=== PATIENT | female | born 2000 | race Caucasian/White ===

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

== ENCOUNTER 2022-02-18 08:05 | Outpatient (CLI) | payer BC, SELFPAY ==
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
--- NOTE | 2022-02-18 08:15 | CRLHL7_ITS ---
For Patients: As a result of the Century Cures Act, medical imaging exams and procedure reports are released immediately into your electronic medical record. You may view this report before your referring provider. If you have questions, please contact your health care provider. INDICATION: Evaluate anatomy. COMPARISON: none TECHNIQUE: Real time sosa scale imaging of the fetus was performed as well as color Doppler analysis of the umbilical vessels. FINDINGS: Sonographic imaging demonstrates a single living intrauterine gestation. Fetus demonstrates a regular cardiac rate of 141 beats per minute. Fetus has a cephalic position. The placenta lies left posterior without evidence of placenta previa. Edge of the placenta is located 7.1 cm from the internal cervical os. Velamentous cord insertion is present. Three-vessel cord noted. Amniotic fluid volume appears normal. Single deepest vertical pocket: 4.2 cm. The cervix is closed and measures 3.7 cm in length. The composite ultrasound gestational age is calculated at 20 weeks 0 days with an estimated sonographic due date of 07/08/2022. The estimated weight is 323 grams which lies at the 51st %. The following biometric measurements were obtained: Biparietal diameter: 4.5 cm/19 weeks 5 day 42nd% Head circumference: 17.0 cm/19 weeks 5 days 32nd% Abdominal circumference: 15.2 cm/20 weeks 3 days 63rd% Femur length: 3.1 cm/19 weeks 4 days 31st% The HC/AC ratio measures: 1.12 range (1.08-1.25) On anatomic survey, there is a normal appearance of the cerebral ventricles, cavum septi pellucidi, cisterna magna and cerebellum. The nose, lips, and facial profile appear normal. The cervical, thoracic and lumbar spine are well visualized and appear normal. There is a normal four-chamber heart view and the left and right ventricular outflow tracts appear normal. The diaphragm and stomach appear normal. The kidneys and bladder also appear normal. The four extremities appear normal. IMPRESSION: Concordance of clinical and sonographic dating. No intrinsic abnormalities noted on anatomic survey. Velamentous three-vessel cord insertion. No placenta previa. Dictated by Jack Blake MD @ 02/18/2022 10:08:41 AM (Electronically Signed)
== END 2022-02-18 08:06 | disposition home or self-care (01) ==
LOC: US 08:05
PROVIDERS: Visit Provider Advanced Practice Midwife
DX: Z34.92 Encounter for supervision of normal pregnancy, unspecified, second trimester (principal); Z3A.19 19 weeks gestation of pregnancy
CPT/HCPCS: 76805

== ENCOUNTER 2022-04-15 09:37 | Outpatient (CLI) | payer BC, SELFPAY ==
--- NOTE | 2022-04-15 09:45 | CRLHL7_ITS ---
For Patients: As a result of the Century Cures Act, medical imaging exams and procedure reports are released immediately into your electronic medical record. You may view this report before your referring provider. If you have questions, please contact your health care provider. INDICATION: Third trimester scan, evaluate growth. COMPARISON: 02/18/2022 TECHNIQUE: Real time sosa scale imaging of the fetus was performed. FINDINGS: Sonographic imaging demonstrates a single living intrauterine gestation. Fetus demonstrates a regular cardiac rate of 159 beats per minute. Fetus has a vertex position. The placenta lies posteriorly. Amniotic fluid volume appears normal and there is a single deepest vertical pocket: 4.8 cm. The estimated weight is 1225gm which lies at the 60th %. On the prior OB ultrasound exam dated 02/18/2022 the estimated weight was at the 51st%. BPD greater than 97th percentile. HC 89th percentile. AC 77th percentile. FL 7th percentile. The HC/AC ratio measures 1.12 range (0.99-1.20). IMPRESSION: Sonographic gestational age 29 weeks 2 days and sonographic due date 06/29/2022. Sonographic age is 10 days ahead of the clinical age. Estimated weight 60th percentile. Abdominal circumference 77th percentile. Dictated by Jack Blake MD @ 04/16/2022 12:07:59 PM (Electronically Signed)
== END 2022-04-15 09:38 | disposition home or self-care (01) ==
LOC: US 09:38
PROVIDERS: Visit Provider Advanced Practice Midwife
DX: O43.123 Velamentous insertion of umbilical cord, third trimester (principal); Z3A.29 29 weeks gestation of pregnancy
CPT/HCPCS: 76816; 86592

== ENCOUNTER 2022-05-13 09:44 | Outpatient (CLI) | payer BC, SELFPAY ==
--- NOTE | 2022-05-13 09:45 | CRLHL7_ITS ---
For Patients: As a result of the Century Cures Act, medical imaging exams and procedure reports are released immediately into your electronic medical record. You may view this report before your referring provider. If you have questions, please contact your health care provider. INDICATION: GROWTH, VELAMENTOUS CORD INSERTION COMPARISON: 02/18/2022 TECHNIQUE: Real time sosa scale imaging of the fetus was performed. FINDINGS: Sonographic imaging demonstrates a single living intrauterine gestation. Fetus demonstrates a regular cardiac rate of 150 beats per minute. Fetus has a cephalic position. The placenta lies posteriorly. Amniotic fluid volume appears normal and there is a single deepest vertical pocket: 4.8 cm. The estimated weight is 1902gm which lies at the 47th %. On the prior OB ultrasound exam dated 02/18/2022 the estimated weight was at the 51st%. BPD 89th percentile. HC 53rd percentile. AC 64th percentile. FL 13th percentile. The HC/AC ratio measures 1.06 range (0.96-1.12). The cord insertion is not well evaluated on this exam. IMPRESSION: Sonographic gestational age 32 weeks 4 days and sonographic due date 07/04/2022. Sonographic age is 5 days ahead of the clinical age. Estimated weight 47th percentile. Abdominal circumference 64th percentile. Dictated by Jack Blake MD @ 05/13/2022 1:32:58 PM (Electronically Signed)
== END 2022-05-13 09:45 | disposition home or self-care (01) ==
LOC: US 09:45
PROVIDERS: Visit Provider Physician Assistant
DX: O43.123 Velamentous insertion of umbilical cord, third trimester (principal); Z3A.32 32 weeks gestation of pregnancy
CPT/HCPCS: 76816

== ENCOUNTER 2022-05-19 12:29 | Outpatient (CLI) | payer BC, SELFPAY ==
[2022-05-19 12:41] VITALS: BP 97/64; PULSE 79; RESP 16; TEMP 37.4; O2SAT 97
--- NOTE | 2022-05-19 12:56 | ED_ITS ---
HPI - General Adult General Time Seen by Provider: 13:04 Date Seen: 05/19/22 Chief complaint: Fall/Minor Trauma Stated complaint: fell,lower back pain,stomach pain Time Seen by Provider: 05/19/22 12:35 Source: patient Mode of arrival: ambulatory Limitations: no limitations History of Present Illness HPI narrative: Patient is a 22-year-old white female who is 32 weeks estimated gestational age, slipped on ice today landed on her buttock on the stairs. She has some mild discomfort in her right leg but is able to move her leg fully able to walk without difficulty. She has no bruising or injury noted yet, she has had no trauma to her abdominal area no vaginal bleeding, no contractions. The patient was concerned about the and came to the ER for evaluation. She has had good movement, no vaginal bleeding, no abdominal pain. Related Data Home Medications Medication Instructions Recorded Confirmed prenat.vits,lee ann,[id number] 1 tab PO QDAY 11/30/21 05/19/22 Allergies Allergy/AdvReac Type Severity Reaction Status Date / Time No Known Allergies Allergy Unverified 05/13/22 10:25 Review of Systems Status of ROS: Reports: 6 or more systems reviewed and unremarkable except as noted in History and below [facility] Medical History Laceration of hand Normal spontaneous vaginal delivery hemorrhage Family History Maternal Grandmother Diabetes Social History Smoking Status: Never smoker How often do you have a drink containing alcohol: never How often do you have six or more drinks on one occasion: Never AUDIT-C Alcohol total score: 0 Non-prescribed substance use: denies use Little interest or pleasure in doing things: nearly every day Feeling down, depressed, or hopeless: more than half the days Exam Narrative: Exam Narrative: Objective: Jefferson is in no apparent distress, her vital signs unremarkable Abdomen is benign soft back exam unremarkable HEENT unremarkable no neck pain lower extremities showed no range of motion deficit no bruising ecchymoses, full range of motion hips bilaterally, her abdomen is soft as mention nontender g ravid. She does report good movement. She denies any vaginal bleeding or contractions Const: Vital Signs, click to edit/add: Vital Signs - 24 hr 05/19/22 12:41 05/19/22 13:31 05/19/22 13:45 Temperature 99.3 F 98.7 F Pulse Rate [Pulse Oximeter] 79 Respiratory Rate 16 Blood Pressure [Ri ght Upper Arm] 97/64 Pulse Oximetry 97 98 Course Vital Signs Vital signs: Initial Vital Signs Temperature 99.3 F 05/19/22 12:41 Temperature Source Temporal Artery Scan 05/19/22 12:41 Pulse Rate 79 05/19/22 12:41 Pulse Rhythm 05/19/22 12:41 Respiratory Rate 16 05/19/22 12:41 Blood Pressure 97/64 05/19/22 12:41 Blood Pressure Mean 75 05/19/22 12:41 Blood Pressure Position Sitting 05/19/22 12:41 Pulse Oximetry 97 05/19/22 12:41 Vital Signs Temperature 99.3 F 05/19/22 12:41 Pulse Rate 79 05/19/22 12:41 Respiratory Rate 16 05/19/22 12:41 Blood Pressure 97/64 05/19/22 12:41 Pulse Oximetry 97 05/19/22 12:41 Temperature 98.7 F 05/19/22 13:45 Pulse Rate 79 05/19/22 12:41 Respiratory Rate 16 05/19/22 12:41 Blood Pressure 97/64 05/19/22 12:41 Pulse Oximetry 98 05/19/22 13:31 Medical Decision Making MDM Narrative Medical decision making narrative: The patient fell on ice on her buttock area, with no significant sequelae over the and other than some slight bruising to the and discomfort to the right leg, do not think she needs imaging studies, I do think she did she would benefit from a OB assessment to make sure she has got a good heart tones and no other worrisome changes. We will call OB and make arrangements for evaluation by OB. They can discharge the patient as they feel fit. Addendum: Per obese request the patient will be transferred to OB. I think she is clear from an ER perspective. Will get monitoring down on the OB floor for heart tones etc.. Discharged per OB unit Discharge Plan Discharge Clinical Impression: , Fall Condition: Stable Additional Instructions: Instructions as per Ob, light activity, Tylenol as needed, gentle range of motion. Return as needed. Update regular doctor next couple of days. Close mo nitoring of movement and any vaginal changes such as bleeding. Prescriptions: No Action prenat.vits,lee ann,[id number] Tablet 1 tab PO QDAY Follow Up/Referrals: Provider,Not a Local [Primary Care Provider] - Stand Alone Forms: [facility] Info Instructions
[2022-05-19 13:31] VITALS: PULSE 85; O2SAT 98
[2022-05-19 13:45] VITALS: TEMP 37.1
--- NOTE | 2022-05-19 16:30 | CRLHL7_ITS ---
For Patients: As a result of the Cures Act, medical imaging exams and procedure reports are released immediately into your electronic medical record. You may view this report before your referring provider. If you have questions, please contact your health care provider. INDICATION: Fall, 32 weeks 5 days gestation TECHNIQUE: Limited grayscale transabdominal OB ultrasound. COMPARISON: May 13, 2022 FINDINGS: Sonographic imaging demonstrates a single living intrauterine gestation. Fetus demonstrates a regular cardiac rate of 159 beats per minute. Fetus has a vertex orientation. The placenta lies posterior without evidence of placenta abruption. Amniotic fluid volume appears normal. Single deepest vertical pocket: 3.7 cm. There is funneling and shortening of the cervix with contractions. With contractions the cervix measures 1.1 cm. Without contraction the cervix measures 1.7 cm. IMPRESSION.: Single viable intrauterine . No evidence for placental abruption. Funneling and shortening of the cervix with contractions. Dictated by Sunitha Lomax MD @ 05/19/2022 6:21:47 PM (Electronically Signed)
[2022-05-19 16:49] LABS: Basophils Absolute Auto 0.01 K/uL (0.00-0.30); Basophils Percent Auto 0.1 % (0.0-3.0); Eosinophils Absolute Auto 0.03 K/uL (0.00-0.50); Eosinophils Percent Auto 0.4 % (0.0-7.0); Hematocrit 32.9 % (33.0-51.0); Hemoglobin* 11.4 gm/dL (12.0-16.0); Immature Granulocytes Abs Auto 0.02 K/uL (0.00-0.30); Immature Granulocytes Pct Auto 0.2 %; Lymphocytes Percent Auto 21.3 % (20-44); Mean Corpuscular HGB Conc 35 gm/dL (32-36); Mean Corpuscular Hemoglobin 29 pg (26-34); Mean Corpuscular Volume 83 fL (80-100); Monocytes Percent Auto 5.5 % (0.0-11.0); Neutrophils Percent Auto 72.5 % (42.0-72.0); Platelet Count* 221 K/uL (140-440); RDW Coefficient of Variation % 12.1 % (11.5-15.5); Red Blood Count 3.95 m/uL (4.00-5.20); White Blood Count* 8.44 K/uL (4.50-11.00)
[2022-05-19 16:52] LABS: Slide Review Reflex No
[2022-05-19 17:07] LABS: INR 0.94 (0.91-1.10); Prothrombin Time 13.2 Seconds
[2022-05-19 17:08] LABS: Fibrinogen* 457 mg/dL (200-450); Partial Thromboplastin Time* 26 Seconds (23-33)
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
[2022-05-19] MEDS: BETAMETHASONE SOD PHOS/ACETATE 6 MG/ML ML 12 MG IM (18:27)
[2022-05-19] MEDS: AMPICILLIN 2 GM in 0.9 % SODIUM CHLORIDE Mini-bag 100 ML IVPB (18:33)
[2022-05-19] MEDS: NIFEdipine 10 MG CAPSULE 20 MG PO (18:36)
[2022-05-19 18:37] VITALS: BP 121/73; PULSE 81
[2022-05-19 19:04] VITALS: BP 116/65; PULSE 88
--- NOTE | 2022-05-19 19:26 | PC.OBNST ---
NST Note NST Note Start: 05/19/22 13:40 Freq: ONCE Status: Active Protocol: Document 05/19/22 19:24 SCIENTOLOGY (Rec: 05/19/22 19:26 SCIENTOLOGY [id number]) NST Note 2 Para (# of births) 1 EDC 07/09/22 Gestational Age In Weeks & Days 32 Weeks & 5 Days Patient Presented with Complaint(s) of Observation after an injury If Observation after an injury, describe Fall at 1230 today If Pain, describe location no pain Reactive Yes Appropriate for Gestational Age Yes TRINA Nick Date 05/19/22 Reactive Yes Appropriate for Gestational Age Yes TRINA Navarro Date 05/19/22 OB NST charge Yes Complete NST Note via Write Note Yes The provider's electronic signature indicates the NST is reactive/appropriate for gestational age. *Note to provider: If an addendum is required, open the patient's chart and click on the note under the Nurse/Allied Health tab.
== END 2022-05-19 19:08 | disposition other institution (70) ==
LOC: ED 13:08 → OB OUT 13:29 → ED 13:32 → OB OUT 13:33 → OB 13:33
PROVIDERS: Emergency Provider Family Medicine; Visit Provider Obstetrics & Gynecology
DX: O43.129 Velamentous insertion of umbilical cord, unspecified trimester (principal); O60.00 Preterm labor without delivery, unspecified trimester; W19.XXXA Unspecified fall, initial encounter; Z3A.32 32 weeks gestation of pregnancy
CPT/HCPCS: 36415; 59025; 76815; 76817; 85025; 85384; 85610; 85730; 99213; 99283; A9270; J0290; J0702

== ENCOUNTER 2022-05-19 19:03 | Outpatient (CLI) | payer BC, SELFPAY | END 2022-05-19 19:04 | disposition home or self-care (01) | LOC: AMB 05-20 09:41 | PROVIDERS: Visit Provider Emergency Medicine Emergency Medical Services | DX: O47.00 False labor before 37 completed weeks of gestation, unspecified trimester (principal) | CPT/HCPCS: A0425; A0428 ==

== ENCOUNTER 2022-06-11 08:10 | Outpatient (CLI) | payer BC, SELFPAY ==
--- NOTE | 2022-06-11 08:15 | CRLHL7_ITS ---
For Patients: As a result of the Century Cures Act, medical imaging exams and procedure reports are released immediately into your electronic medical record. You may view this report before your referring provider. If you have questions, please contact your health care provider. INDICATION: GROWTH, VELAMENTOUS CORD INSERTION COMPARISON: 05/13/2022, 05/19/2022 TECHNIQUE: Real time sosa scale imaging of the fetus was performed as well as color Doppler and spectral Doppler analysis of the umbilical artery. FINDINGS: Sonographic imaging demonstrates a single living intrauterine gestation. Fetus demonstrates a regular cardiac rate of 147 beats per minute. Fetus has a vertex position. The placenta lies posterior. Cord insertion is similar. Amniotic fluid volume appears normal and there is a single deepest vertical pocket: A 6.5 cm. The estimated weight is 2711gm which lies at the 39th %. On the prior OB ultrasound exam dated 05/13/2022 the estimated weight was at the 47th%. BPD 59th percentile. HC 29th percentile. AC 51st percentile. FL 17th percentile. The HC/AC ratio measures 1.01 range (0.93-1.09). IMPRESSION: Sonographic gestational age 35 weeks 5 days and sonographic due date of 07/11/2022. Good correlation with dates. Normal interval growth. Estimated weight 39th percentile. Abdominal circumference 51st percentile. Dictated by Jack Blake MD @ 06/12/2022 9:53:40 AM (Electronically Signed)
== END 2022-06-11 08:11 | disposition home or self-care (01) ==
LOC: US 08:10
PROVIDERS: Visit Provider Physician Assistant
DX: O43.123 Velamentous insertion of umbilical cord, third trimester (principal); Z3A.35 35 weeks gestation of pregnancy
CPT/HCPCS: 76816; 87081; 87653

== ENCOUNTER 2022-06-15 13:06 | Outpatient (CLI) | payer BC, SELFPAY ==
[2022-06-15 13:26] VITALS: BP 117/83; PULSE 76
[2022-06-15 13:27] VITALS: RESP 16; TEMP 36.8
--- NOTE | 2022-06-15 15:53 | PC.OBNST ---
NST Note NST Note Start: 06/15/22 13:09 Freq: ONCE Status: Active Protocol: Document 06/15/22 15:52 MARIALUISA (Rec: 06/15/22 15:53 MARIALUISA [id number]) NST Note 2 Para (# of births) 1 EDC 07/09/22 Gestational Age In Weeks & Days 36 Weeks & 4 Days Patient Presented with Complaint(s) of Other Other Complaints pt. sent over from the clinic due to being 6cm and having UC 's Reactive Yes Appropriate for Gestational Age Yes TRINA Dai RNC Date 06/15/22 Reactive Yes Appropriate for Gestational Age Yes TRINA Le RN Date 06/15/22 OB NST charge Yes Complete NST Note via Write Note Yes The provider's electronic signature indicates the NST is reactive/appropriate for gestational age. *Note to provider: If an addendum is required, open the patient's chart and click on the note under the Nurse/Allied Health tab.
== END 2022-06-15 15:38 | disposition home or self-care (01) ==
LOC: OB OUT 13:08 → OB 13:09
PROVIDERS: Visit Provider Obstetrics & Gynecology
DX: Z34.93 Encounter for supervision of normal pregnancy, unspecified, third trimester (principal); Z3A.36 36 weeks gestation of pregnancy
CPT/HCPCS: 59025; 99213

== ENCOUNTER 2022-06-18 13:02 | Outpatient (CLI) | payer BC, SELFPAY ==
[2022-06-18 13:22] VITALS: BP 122/61; PULSE 85
[2022-06-18 13:23] VITALS: PULSE 92; O2SAT 98
[2022-06-18 13:24] VITALS: RESP 16; TEMP 36.8
--- NOTE | 2022-06-18 14:03 | PC.OBNST ---
NST Note NST Note Start: 06/18/22 13:10 Freq: ONCE Status: Active Protocol: Document 06/18/22 13:38 SAMANTHA (Rec: 06/18/22 14:03 SAMANTHA [id number]) NST Note 2 Para (# of births) 1 EDC 07/09/22 Gestational Age In Weeks & Days 37 Weeks & 0 Days Patient Presented with Complaint(s) of Decreased movement Reactive Yes Appropriate for Gestational Age Yes RN Emily Priest, TRINAC Date 06/18/22 Reactive Yes Appropriate for Gestational Age Yes TRINA Hoskins, RN Date 06/18/22 OB NST charge Yes Complete NST Note via Write Note Yes The provider's electronic signature indicates the NST is reactive/appropriate for gestational age. *Note to provider: If an addendum is required, open the patient's chart and click on the note under the Nurse/Allied Health tab.
== END 2022-06-18 13:44 | disposition home or self-care (01) ==
LOC: OB OUT 13:03 → OB 13:03
PROVIDERS: Visit Provider Obstetrics & Gynecology
DX: O36.8130 Decreased fetal movements, third trimester, not applicable or unspecified (principal); Z3A.37 37 weeks gestation of pregnancy
CPT/HCPCS: 59025; 99213

== ENCOUNTER 2022-06-25 11:07 | Outpatient (CLI) | payer BC, SELFPAY ==
[2022-06-25 11:14] VITALS: BP 120/72; PULSE 80
[2022-06-25 11:15] VITALS: RESP 16; TEMP 36.5
== END 2022-06-25 13:00 | disposition home or self-care (01) ==
LOC: OB OUT 11:12 → OB 11:13
PROVIDERS: Visit Provider Obstetrics & Gynecology
DX: Z34.93 Encounter for supervision of normal pregnancy, unspecified, third trimester (principal); Z3A.38 38 weeks gestation of pregnancy
CPT/HCPCS: 59025; 99213

== ENCOUNTER 2022-06-25 15:57 | Inpatient (IN) | payer BC, SELFPAY ==
[2022-06-25] VITALS (16 sets, daily range): BP systolic 107–125; BP diastolic 65–84; PULSE 66–101; RESP 16; TEMP 36.3–37; O2SAT 94–100; BMI 25.9
--- NOTE | 2022-06-25 15:58 | W.PM.LDBA ---
Subjective History of Present Illness Narrative: Patient is being admitted to Labor and Delivery for labor. She is a 22 year old -0-0-1 woman at 38 weeks gestation. Specific Issues/Plans ? Partner: Jack ? 1.? Teen - offer [place] teen group, forensic social worker at next visit, recommended and offered 01/01-patient declined 2.? Hx of PP hemorrhage requiring transfusion (QBL 1479) -Consider TXA prior to delivery 2.? Depression & anxiety -worse now that family has moved back to [place] -Willing tor try medication, Lexapro ordered at [facility].? -01/01:? Reported she did not start the Lexapro.? She is feeling much better. -previous hx of suicide attempt in 6th grade, inpatient for 2 weeks after 3. Velamentous cord insertion. Growth U/S Q4 weeks starting at 28-32 weeks. 04/15/22:Estimated weight 60th percentile. Abdominal circumference 77th percentile. SDP 4.8 32 weeks: EFW 47%, BPD 89%, HC 53%, AC 64%, FL 13%, SDP 4.8 36 weeks:Vertex presentation, S DP:? 6.5 cm, posterior placenta, heart rate 147 beats per minute.? BPD: 59 percentile, HC 29 percentile, AC 51 percentile, F L 17 percentile.? EFW: 2711 g, 39% 4. Evaluated at L&D on 05/19/22 after a fall: - uterine contractions and cervix 2cm dilated- labor -Transferred to [facility], s/p course of betamethasone -Was left on Procardia q 6hrs, has been tolerating well-now discontinued COVID: FLU: 02/18/22 TDAP: 04/29/22 Her full history and physical was dictated by Dr. Koenig on 06/11/22. Please see this for details. OB - Problem Based A/P Additional Plan (1) : Status: Acute Plan: 22-year-old G2, P 1-0-0-1 woman at 38 weeks, 0 days gestation in active labor. Category 1 tracing GBS negative History of hemorrhage Plan Type and screen, CBC. Otherwise, expectant management. Anticipate spontaneous vaginal delivery. OB Exam Physical Exam Vital signs: Temp Pulse Resp BP Pulse Ox 98.4 F 76 16 115/68 100 06/25/22 15:41 06/25/22 15:41 06/25/22 15:41 06/25/22 15:41 06/25/22 15:41 General: Pacing, breathing through contractions Heart: Regular rate and rhythm, no murmur or gallop Lungs: Clear to auscultation bilaterally Abdomen: Soft, nontender, gravid Lower extremities: No edema or erythema Narrative: tracing: Baseline 135 / accels present / no decels /moderate variability
[2022-06-25 16:27] LABS: Basophils Absolute Auto 0.01 K/uL (0.00-0.30); Basophils Percent Auto 0.1 % (0.0-3.0); Eosinophils Absolute Auto 0.03 K/uL (0.00-0.50); Eosinophils Percent Auto 0.3 % (0.0-7.0); Hematocrit 35.1 % (33.0-51.0); Hemoglobin* 11.6 gm/dL (12.0-16.0); Immature Granulocytes Abs Auto 0.04 K/uL (0.00-0.30); Immature Granulocytes Pct Auto 0.4 %; Lymphocytes Absolute Auto 2.59 K/uL (0.90-2.90); Lymphocytes Percent Auto 25.8 % (20-44); Mean Corpuscular HGB Conc 33 gm/dL (32-36); Mean Corpuscular Hemoglobin 27 pg (26-34); Mean Corpuscular Volume 80 fL (80-100); Monocytes Percent Auto 6.7 % (0.0-11.0); Neutrophils Absolute Auto 6.71 K/uL (1.7-7.0); Neutrophils Percent Auto 66.7 % (42.0-72.0); Platelet Count* 219 K/uL (140-440); RDW Coefficient of Variation % 12.9 % (11.5-15.5); Red Blood Count 4.37 m/uL (4.00-5.20); White Blood Count* 10.05 K/uL (4.50-11.00)
[2022-06-25 17:01] LABS: SARS PCR* Negative SARS-CoV-2 (Negative)
[2022-06-25 17:21] LABS: Slide Review Reflex No
[2022-06-25] MEDS: TRANEXAMIC ACID 100 MG/ML INJ 1000 MG IV (18:08)
[2022-06-25] MEDS: OXYTOCIN 30 unit/500 ML in NS 30 UNIT/500 ML BAG 300 UNIT IVPB (18:08)
[2022-06-25] MEDS: LIDOCAINE 1 % PF 30 ML INJECTION (18:11)
[2022-06-25] MEDS: miSOPROStoL 800 MCG/4 TABLET PR (18:16)
--- NOTE | 2022-06-25 18:30 | PM.OBPRCVD ---
Procedure Delivery date: 06/25/22 Procedure Done: Global Procedure Details: The patient is a 22 year-old G 2 P 1-0-0-1 admitted on 06/25/2022 at 38 Weeks, 0 Days gestation for labor.? Cervical exam on admission was 7 cm/80 % effaced/-1 station with membranes intact in vertex presentation.? Contractions were regular.? heart rate demonstrated baseline 135 bpm with moderate variability, positive accelerations, no decelerations; a category 1 tracing.? ? Labor Analgesia:? None ? Pitocin:? No ? Labor onset:? 3:30 p.m. AROM occurred at 1800 with clear fluid. Just after this, fetus exhibited deceleration into the 80s, which subsequently recovered into the normal range prior to of baby. ? Complete:? 1804 ? Pushing:? 1804. ? At 1805 a viable male delivered in vertex OA presentation over intact perineum via spontaneous vaginal delivery after the patient pushed over the course of 1 contraction.? Infant was placed on maternal abdomen.? Cord was clamped and cut after a greater than 60 second delay.? Nose and mouth were bulb suctioned.? Infant weight pending.? 8 at 1 minute and 9 at 5 minutes.? Shoulder dystocia: No.? Nuchal cord: No. ? Placenta delivered spontaneously and complete at 1808 with a 3 vessel cord. ? Mother and infant were stable after delivery. ? Lacerations:? Right periurethral, repaired with 2 interrupted sutures of 3-0 chromic after infiltration with small amount of 1% lidocaine. ? Blood loss: 350 mL. Blood loss measurement type: QBL ? Sponge and needles counts are correct. Given her history of hemorrhage, she was given Pitocin and TXA after delivery of the infant. In addition, when bleeding increased during the repair of her laceration, she was treated with 800 mcg of rectal misoprostol.
[2022-06-26 00:27] VITALS: BP 121/54; PULSE 82; RESP 16; TEMP 36.4; O2SAT 99
[2022-06-26] MEDS: ACETAMINOPHEN 500 MG TABLET 1000 MG PO (04:15)
[2022-06-26 04:29] VITALS: BP 110/73; PULSE 76; RESP 16; TEMP 37; O2SAT 97
[2022-06-26 09:15] VITALS: BP 117/83; PULSE 75; RESP 16; TEMP 36.5
--- NOTE | 2022-06-26 09:36 | PM.OBDSVD1 ---
DS: Providers Provider Date Seen: 06/26/22 Date of admission: 06/25/22 15:57 Primary care physician: Not a Local Provider Admitting Clinician: Negar Bolivar MD Attending Physician on discharge: MD Gloria Date of Discharge: 06/26/22 DS: Diagnosis Discharge Diagnosis (1) Normal spontaneous vaginal delivery: Status: Acute Exam Narrative: Exam Narrative: VITAL SIGNS: As noted above. GENERAL APPEARANCE: Alert, cooperative female in no acute distress. MOOD & AFFECT: Normal. Abdomen: Soft, non-distended and nontender. Uterus well contracted and appropriately tender. : Normal lochia. EXTREMITIES: Nonedematous. Well perfused. Nontender. Const: Vital Signs, click to edit/add: Vital Signs - 24 hr 06/25/22 15:41 06/25/22 15:41 06/25/22 17:03 Temperature 98.4 F Pulse Rate 76 88 Pulse Rate [Pulse Oximeter] Respiratory Rate 16 Blood Pressure 115/68 125/65 Blood Pressure [Le ft Arm] Pulse Oximetry [facility] 06[facility] 17:03 06/25/22 17:51 06/25/22 17:51 Temperature 98.3 F 98.1 F Pulse Rate 70 Pulse Rate [Pulse Oximeter] Respiratory Rate 16 16 Blood Pressure 122/84 Blood Pressure [Le ft Arm] Pulse Oximetry [facility] 06/25/22 18:02 06/25/22 18:05 06/25/22 18:10 Temperature Pulse Rate 69 Pulse Rate [Pulse Oximeter] Respiratory Rate Blood Pressure 119/75 Blood Pressure [Le ft Arm] Pulse Oximetry 100 94 [facility] 06/25/22 18:22 06/25/22 18:25 06/25/22 18:40 Temperature Pulse Rate 66 67 75 Pulse Rate [Pulse Oximeter] Respiratory Rate Blood Pressure 120/76 117/76 119/78 Blood Pressure [Le ft Arm] Pulse Oximetry [facility] 06/25/22 18:55 06/25/22 19:10 06/25/22 19:25 Temperature Pulse Rate 81 67 66 Pulse Rate [Pulse Oximeter] Respiratory Rate Blood Pressure 107/70 116/74 119/78 Blood Pressure [Le ft Arm] Pulse Oximetry [facility] 06/25/22 19:41 06/25/22 19:41 06/25/22 19:55 Temperature Pulse Rate 78 Pulse Rate [Pulse Oximeter] Respiratory Rate Blood Pressure 121/73 115/65 Blood Pressure [Le ft Arm] Pulse Oximetry Oxygen Delivery De [facility]od 06/25/22 19:55 06/25/22 20:10 06/25/22 20:10 Temperature Pulse Rate 82 77 Pulse Rate [Pulse Oximeter] Respiratory Rate Blood Pressure 115/68 Blood Pressure [Le ft Arm] Pulse Oximetry Oxygen Delivery De [facility]od 06/25/22 18:25 06/25/22 18:40 06/25/22 18:55 Temperature 97.3 F L 97.8 F 98.5 F Pulse Rate Pulse Rate [Pulse Oximeter] Respiratory Rate 16 16 16 Blood Pressure Blood Pressure [Le ft Arm] Pulse Oximetry [facility] 06/25/22 19:10 06/25/22 19:25 06/25/22 19:40 Temperature 98.6 F 97.9 F Pulse Rate Pulse Rate [Pulse Oximeter] Respiratory Rate 16 16 16 Blood Pressure Blood Pressure [Le ft Arm] Pulse Oximetry [facility] 06/25/22 19:55 06/25/22 20:10 06/26/22 00:27 Temperature 98.2 F 97.6 F Pulse Rate Pulse Rate [Pulse Oximeter] 82 Respiratory Rate 16 16 16 Blood Pressure Blood Pressure [Le ft Arm] 121/54 L Pulse Oximetry 99 [facility] 06/26/22 04:29 06/26/22 09:15 Temperature 98.6 F 97.7 F Pulse Rate Pulse Rate [Pulse Oximeter] 76 75 Respiratory Rate 16 16 Blood Pressure Blood Pressure [Le ft Arm] 110/73 117/83 Pulse Oximetry 97 Oxygen Delivery Me od Room Air Room Air OB - DS: Summary Hospital Course Hospital Course: The patient is a 22 year old G 2 P 2001 at 38 1/7 weeks gestation that was admitted to the Center on 06/25/22 in labor for delivery. She had an uncomplicated vaginal delivery. She delivered a viable male . She is breast feeding. the patient has done well. Peripartum Data delivery method: Vaginal Laceration description: Periurethral - 1st Degree complications: none Plain Infant Gender: Male Discharge Plan: Home Status at Discharge Functional status at discharge: independent ambulation Overall status at discharge: patient is progressing back to baseline Time Spent with Patient Time attestation: Total time spent providing and/or coordinating discharge services: Time spent: Less than 30 minutes Discharge Plan Discharge Disposition: Home, Self-Care Date of Admission: 06/25/22 15:57 Attending Provider on Discharge: Briana Castro Consulting Providers: Briana Castro Primary Care Provider: Provider,Not a Local Condition: Stable Anticipated Discharge Date/Time: 06/26/22 18:00 Discharge Medications: New ibuprofen 600 mg Tablet 600 mg PO Q6H PRNQty: 15 0RF Discharge Orders: Discharge Order (Routine); Ordered 06/26/22 Ordered By: Briana Castro Patient Education: OB Vaginal/Breast Feeding Activity Level: Activity as Tolerated Activity Detail: Nothing vaginally for 6 weeks Discharge Diet: Regular Follow Up Appointments: Briana Castro MD [Staff Physician] - Provider,Not a Local [Primary Care Provider] - Forms: [employer] Info Instructions Discharge Comments: Follow up in clinic for 2 week visit to check on mood and . Follow up in 6 weeks in clinic for a regular visit.
[2022-06-26 13:00] VITALS: BP 112/76; PULSE 93; RESP 16; TEMP 36.9
== END 2022-06-26 19:21 | disposition home or self-care (01) | DRG 560 ==
LOC: OB OUT 15:59 → OB 15:59
PROVIDERS: Admitting Provider Obstetrics & Gynecology; Visit Provider Obstetrics & Gynecology
DX: O70.0 First degree perineal laceration during delivery (principal); Z3A.38 38 weeks gestation of pregnancy; Z37.0 Single live birth
CPT/HCPCS: 36415; 85018; 85025; 86850; 86900; 86901; 87635; A9270; J2001

== ENCOUNTER 2023-04-13 11:07 | Emergency (ER) | payer BC, SELFPAY ==
[2023-04-13 11:12] VITALS: BP 103/69; PULSE 82; RESP 16; TEMP 36.8; O2SAT 99; BMI 23.0
--- NOTE | 2023-04-13 11:18 | ED_ITS ---
HPI - General Adult General Time Seen by Provider: 11:18 Date Seen: 04/13/23 Chief complaint: Cough Stated complaint: Cough Time Seen by Provider: 04/13/23 11:09 Source: patient and RN notes reviewed Mode of arrival: ambulatory Limitations: no limitations History of Present Illness HPI narrative: Patient is a 23yo female coming in with cough for a week, no fever now but initially did have one. Coughing is worse at night. Still some sore throat but no pain with swallowing, hurts more with coughing. No sinus or facial, no dental pain, no otalgia. Coughing so much that her stomach muscles hurt. No known ill contacts. Has Nexplanon or similar for contraception. Related Data Previous Rx's Medication Instructions Recorded codeine 10 mg-guaifenesin 100 mg/5 5 - 10 ml PO HS PRN #120 mL 04/13/23 mL oral liquid (Guaifenesin AC) Allergies Allergy/AdvReac Type Severity Reaction Status Date / Time No Known Allergies Allergy Verified 04/13/23 11:11 Review of Systems Status of ROS: Reports: 6 or more systems reviewed and unremarkable except as noted in History and below [facility] Medical History (Updated 04/13/23 @ 12:45 by Aileen Acosta MD) labor ?O60.00 - labor without delivery, unspecified trimester (ICD-10) Velamentous insertion of umbilical cord ?O43.129 - Velamentous insertion of umbilical cord, unspecified trimester (ICD-10) hemorrhage ?O72.1 - Other immediate hemorrhage (ICD-10) Normal spontaneous vaginal delivery ?O80 - Encounter for full-term uncomplicated delivery (ICD-10) Laceration of hand ?S61.419A - Laceration without foreign body of unspecified hand, initial encounter (ICD-10) Family History Maternal Grandmother Diabetes Social History Smoking Status: Never smoker Do you use any of these nicotine containing products: None How often do you have a drink containing alcohol: never How often do you have six or more drinks on one occasion: Never AUDIT-C Alcohol total score: 0 Non-prescribed substance use: denies use Little interest or pleasure in doing things: several days Feeling down, depressed, or hopeless: not at all service: No Exam Const: Vital Signs, click to edit/add: Vital Signs - 24 hr 04/13/23 11:12 Temperature 98.2 F Pulse Rate [Pulse Oximeter] 82 Respiratory Rate 16 Blood Pressure [Ri ght Upper Arm] 103/69 Pulse Oximetry 99 Oxygen Delivery Me thod Room Air 23yo female ambulatory into the ED of he r own accord. She is alert, interactive, no apparent distress but looks like she doesn't feel well. Able to speak in complete sentences, no hoarseness. Pupils are equal round, sclera clear, symmetrical facial function, no tenderness on palpation of sinuses. Oropharynx with normal mucosa, no exudates or erythema, posterior pharynx looks normal, no significant tonsillar enlargement or exudates. Neck is supple, no cervical adenopathy. Lungs are clear, good air entry, no wheezing or crackles, no tachypnea. CV regular rate and rhythm, no murmur, normal S1 and S2, no S3 or S4. Documenting provider has reviewed patient's vital signs: yes Course Course ED Course: 23-year-old female with cough for weak, nursing staff had appropriately collected the triple viral swab. Will look at a chest x-ray to see if there is perhaps a secondary pneumonia developing. Reevaluation(s) Time of Reevaluation #1: 12:50 Reevaluation #1: Reviewed with patient that her chest x-ray is negative, triple swab is negative. She does not feel like the cough is worsening overall, does note that worsens at night. We discussed symptomatic measures of elevating head of the bed, getting a humidifier or vaporizer as she does not have 1. She is . She has been using cough and cold medicine with NyQuil. Did review issues with medicines. She would like some cough medicine with codeine in it, discussed this, medications can go through to the breast milk. Reviewed no indications for antibiotics at this time with normal chest x-ray, no fevers and symptoms not supporting really any significant worsening of her cough. She has no history of asthma and was not wheezing, do not think steroids are indicated either at this time. Vital Signs Vital signs: Initial Vital Signs Temperature 98.2 F 04/13/23 11:12 Temperature Source Temporal Artery Scan 04/13/23 11:12 Pulse Rate 82 04/13/23 11:12 Pulse Rhythm Regular 04/13/23 11:12 Pulse Strength 3+ Normal 04/13/23 11:12 Respiratory Rate 16 04/13/23 11:12 Blood Pressure 103/69 04/13/23 11:12 Blood Pressure Mean 80 04/13/23 11:12 Blood Pressure Position Sitting 04/13/23 11:12 Pulse Oximetry 99 04/13/23 11:12 Oxygen Delivery Method Room Air 04/13/23 11:12 Vital Signs Temperature 98.2 F 04/13/23 11:12 Pulse Rate 82 04/13/23 11:12 Respiratory Rate 16 04/13/23 11:12 Blood Pressure 103/69 04/13/23 11:12 Pulse Oximetry 99 04/13/23 11:12 Oxygen Delivery Method Room Air 04/13/23 11:12 Temperature 98.2 F 04/13/23 11:12 Pulse Rate 82 04/13/23 11:12 Respiratory Rate 16 04/13/23 11:12 Blood Pressure 103/69 04/13/23 11:12 Pulse Oximetry 99 04/13/23 11:12 Oxygen Delivery Method Room Air 04/13/23 11:12 Medical Decision Making Lab Data Lab results reviewed: Yes I reviewed the patient's lab results Labs: Lab Results 04/13/23 Range/Units 11:10 SARS-CoV-2 (PCR) Negative SARS-CoV-2 (Negative) Influenza Type A (PCR) Negative PCR FLU A (Negative) Influenza Type B (PCR) Negative PCR FLU B (Negative) RSV (PCR) Negative PCR RSV (Negative) Imaging Data Chest x-ray: Attestation: I have reviewed the pertinent imaging results. My impression: I see no acute pathology on preliminary read, await radiology reading. Radiologist's impression: Patient: SHLEBI ODONNELL Facility:?[facility] Patient ID:?[id number] Site Patient ID:?[id number]. Site :?[id number] Study:?XRay Chest 2V-04/13/2023 11:47:59 AM Ordering Physician:Samantha Gallagher Final Report: INDICATION: Cough TECHNIQUE: Chest 2 views. COMPARISON: None. FINDINGS: Cardiovascular and mediastinum: Heart size and vasculature are normal in caliber and appearance. Lungs and pleural spaces: Lungs are clear. No sign of infiltrate or mass. No sign of pleural effusion. No pneumothorax. Bones and soft tissues: No significant findings. IMPRESSION: No acute cardiopulmonary process. Dictated by Tony Junior MD @ 04/13/2023 12:23:51 PM (Electronic Signature) Discharge Plan Discharge Clinical Impression: Upper respiratory infection, acute Patient Disposition: Home, Self-Care Condition: Stable Instructions: Upper Respiratory Infection (ED) Additional Instructions: Try to elevate the head of your bed, can help decrease coughing at night, consider getting humidifier or vaporizer for your room. Will provide a prescription for cough medicine with codeine, do not recommend breast-feeding, should probably pump and dump for 6-8 hours after use. If you are developing increasing cough, cough becoming more productive, have fevers develop with increased respiratory symptoms, do need to be re-evaluated for secondary bacterial infection and possible need for antibiotics. Activity Level: Activity as Tolerated Prescriptions: New codeine-guaifenesin [Guaifenesin AC] 10-100 mg/5 mL liquid 5 - 10 ml PO HS PRNQty: 120 0RF Follow Up/Referrals: Provider,Not a Local [Primary Care Provider] - Stand Alone Forms: [employer] Info Instructions
--- NOTE | 2023-04-13 11:26 | CRLHL7_ITS ---
For Patients: As a result of the Century Cures Act, medical imaging exams and procedure reports are released immediately into your electronic medical record. You may view this report before your referring provider. If you have questions, please contact your health care provider. INDICATION: Cough TECHNIQUE: Chest 2 views. COMPARISON: None. FINDINGS: Cardiovascular and mediastinum: Heart size and vasculature are normal in caliber and appearance. Lungs and pleural spaces: Lungs are clear. No sign of infiltrate or mass. No sign of pleural effusion. No pneumothorax. Bones and soft tissues: No significant findings. IMPRESSION: No acute cardiopulmonary process. Dictated by Tony Junior MD @ 04/13/2023 12:23:51 PM (Electronically Signed)
[2023-04-13 12:00] LABS: PCR FLU A Negative PCR FLU A (Negative); PCR FLU B Negative PCR FLU B (Negative); PCR RSV Negative PCR RSV (Negative)
[2023-04-13 12:01] LABS: SARS PCR* Negative SARS-CoV-2 (Negative)
[2023-04-13 13:10] VITALS: BP 97/65; PULSE 79; O2SAT 100
== END 2023-04-13 13:18 | disposition home or self-care (01) ==
PROVIDERS: Emergency Provider Family Medicine
DX: J06.9 Acute upper respiratory infection, unspecified (principal)
CPT/HCPCS: 71046; 87631; 99283